=== PATIENT | female | born 1975 | race Caucasian/White ===

== ENCOUNTER 2019-07-25 16:21 | Emergency (ER) | payer MEDICAID ==
[~2019-07-25] VITALS: Ht 147.3 cm; Wt 68.5 kg
[2019-07-25 16:45] VITALS: BP 139/78
--- NOTE | 2019-07-25 16:47 | NUR ---
URINE CUP HANDED TO PT FOR SAMPLE Addendum: 07/25/19 at 1721 by [email or web address] PT AMB TO ER BED 4
--- NOTE | 2019-07-25 17:29 | NUR ---
C/O FEVER, BODYACHES, NAUSEA, AND DIZZINSS X 5 DAYS . PT AWAKE , ALERT, FIBRILE , AMBULATORY WITH STEADY GAIT. SCE , CBS, SOFT NABS ABDOMEN. HX--HTN, PRE-DM RX--?
--- NOTE | 2019-07-25 17:50 | NUR ---
DR URBAN AT BEDSIDE EVALUATING PT.
[2019-07-25 18:08] LABS: APPEARANCE,URINE CLEAR (CLEAR); BILIRUBIN,URINE NEGATIVE (NEGATIVE); BLOOD, URINE NEGATIVE (NEGATIVE); COLOR,URINE YELLOW (YELLOW); LEUKOCYTE ESTERASE ,URINE NEGATIVE (NEGATIVE); NITRITE, URINE NEGATIVE (NEGATIVE); PH,URINE 6.5 (5.0-9.0); UGLUCOSE NEGATIVE (NEGATIVE)
[2019-07-25 18:13] VITALS: BP 139/78
--- NOTE | 2019-07-25 18:13 | NUR ---
Patient discharged with v/s stable. Written and verbal after care instructions given and explained. Patient alert, oriented and verbalized understanding of instructions. Ambulatory with steady gait. All questions addressed prior to discharge. ID band removed. Patient advised to follow up with PMD. Rx of zofran, claratin, tamiflu given. Patient educated on indication of medication including possible reaction and side effects. Opportunity to ask questions provided and answered.
== END 2019-07-25 18:13 | disposition home or self-care (01) ==
LOC: MED 16:21
DX: B34.9 Viral infection, unspecified (principal); I10 Essential (primary) hypertension; Z90.49 Acquired absence of other specified parts of digestive tract
CPT/HCPCS: 81003; 81025; 87804; 99283